=== PATIENT | female | born 1970 | race Caucasian/White ===

== ENCOUNTER 2019-03-22 06:56 | Day surgery (SDC) | payer BC, OTHER ==
[2019-03-22] VITALS (14 sets, daily range): BP systolic 89–139; BP diastolic 48–78; PULSE 58–82; RESP 13–18; Ht 154.9 cm; Wt 79.1 kg
[~2019-03-22] VITALS: Ht 154.9 cm; Wt 79.1 kg
[2019-03-22] MEDS ORDERED: CEFAZOLIN 2 GM/50 ML (PMX) 50 ML IVPB ONE (07:00)
[2019-03-22] MEDS ORDERED: SOD CHLORIDE 0.9% 1,000 ML IV SCH (07:00)
[2019-03-22] MEDS ORDERED: MIDAZOLAM 1 MG/ML 2 ML INJ ONE (09:51)
[2019-03-22] MEDS ORDERED: FENTAnyl 50 MCG/ML VIAL ONE (09:51)
[2019-03-22] MEDS ORDERED: LIDOCAINE 1% (MDV) 20 ML INJ ONE (09:51)
[2019-03-22] MEDS ORDERED: PROPOFOL 20 ML ONE (10:24)
[2019-03-22] MEDS ORDERED: HYDROmorphONE 1 MG/5 ML IV SYRINGE IV PRN ×3 (10:30)
[2019-03-22] MEDS ORDERED: CEFAZOLIN 1 GM INJ ONE (10:42)
[2019-03-22] MEDS ORDERED: ONDANSETRON 4 MG INJ ONE (10:43)
[2019-03-22] MEDS ORDERED: BUPIVACAINE 0.25% (STERILE-PAK) 30 ML INJ INJ ONE (10:45)
[2019-03-22] MEDS ORDERED: IBUPROFEN 800 MG TAB PO ONE (11:30)
[2019-03-22] MEDS ORDERED: BUPIVACAINE 0.25% (MPF) 30 ML INJ ONE (12:15)
== END 2019-03-22 12:49 | disposition home or self-care (01) ==
LOC: SDS 06:56
PROVIDERS: ATTEND Surgery
DX: D17.1 Benign lipomatous neoplasm of skin and subcutaneous tissue of trunk (principal)
CPT/HCPCS: 14001; 80053; 84703; 85025; 85610; 85730; J0690; J2250; J2405; J3010; Z7512; Z7610; 88307

== ENCOUNTER 2019-03-29 18:24 | Emergency (ER) | payer OTHER ==
[~2019-03-29] VITALS: Ht 154.9 cm; Wt 80.3 kg
[~2019-03-29 18:24] MED LIST: MUPI15CR9 TOP; OXYC-279 PO
[2019-03-29 18:55] VITALS: Ht 154.9 cm; Wt 80.3 kg
[2019-03-29 21:25] VITALS: BP 148/88; PULSE 68; RESP 19
== END 2019-03-29 21:27 | disposition home or self-care (01) ==
LOC: E/R 18:24
DX: G89.18 Other acute postprocedural pain (principal)
CPT/HCPCS: 99283